=== PATIENT | female | born 1965 | race Caucasian/White ===

== ENCOUNTER 2016-09-19 13:37 | Emergency (ER) | payer MEDICAID, OTHER ==
[~2016-09-19] VITALS: Ht 167.6 cm; Wt 104.3 kg
[2016-09-19 15:03] VITALS: BP 140/72
== END 2016-09-19 15:29 | disposition home or self-care (01) ==
LOC: ER 13:37
DX: G89.29 Other chronic pain (principal); M54.5 Low back pain; Z90.710 Acquired absence of both cervix and uterus